=== PATIENT | female | born 1940 | race Caucasian/White ===

== ENCOUNTER → 2024-01-23 | Outpatient (CLI) | payer MEDICARE, OTHER ==
--- NOTE | 2024-01-23 15:43 | US ---
EXAMINATION TYPE: US kidneys/renal and bladder DATE OF EXAM: 01/23/2024 COMPARISON: NONE CLINICAL INDICATION: Female, 83 years old with history of R94.4 DECREASED GFR; decreased GFR TECHNIQUE: Grayscale and color Doppler imaging of the bilateral kidneys and urinary bladder: FINDINGS: EXAM MEASUREMENTS: Right Kidney: 10.7 x 4.8 x 4.9 cm Left Kidney: 10.5 x 5.3 x 4.3 cm Right Kidney: no evidence of hydronephrosis Left Kidney: no evidence of hydronephrosis Bladder: appears wnl, not fully distended Bilateral Jets seen: no There is no evidence for hydronephrosis at this point in time. No nephrolithiasis is seen. No elvira s are identified. The urinary bladder is anechoic. . IMPRESSION: 1. No renal mass, renal calcification or hydronephrosis. 2. No renal atrophy [facility], Workstation: [employer], 01/23/2024 3:40 PM
== END | disposition home or self-care (01) ==
LOC: RADUSWWP 14:35
PROVIDERS: ATTEND Internal Medicine
DX: R94.4 Abnormal results of kidney function studies (principal)
CPT/HCPCS: 76770; 77080